=== PATIENT | female | born 1995 | race Caucasian/White ===

== ENCOUNTER 2019-09-23 11:40 | Emergency (ER) | payer SELFPAY ==
[~2019-09-23] VITALS: Ht 149.9 cm; Wt 59.4 kg
[2019-09-23 11:52] VITALS: BP 111/71
--- NOTE | 2019-09-23 11:59 | NUR ---
PT PROVIDED URINE SAMPLE AND AMBULATED TO LOBBY
[2019-09-23 12:37] LABS: APPEARANCE,URINE CLEAR (CLEAR); BILIRUBIN,URINE NEGATIVE (NEGATIVE); BLOOD, URINE 2+ (NEGATIVE); COLOR,URINE YELLOW (YELLOW); LEUKOCYTE ESTERASE ,URINE NEGATIVE (NEGATIVE); NITRITE, URINE NEGATIVE (NEGATIVE); PH,URINE 5.5 (5.0-9.0); UGLUCOSE NEGATIVE (NEGATIVE)
[2019-09-23 12:39] LABS: BASOPHILS % (AUTO) 0.4 % (0.0-2.0); EOSINOPHILS # (AUTO) 0.1 K/uL (0-0.4); EOSINOPHILS % (AUTO) 1.1 % (0.0-4.0); HEMATOCRIT 38.5 % (36-48); HEMOGLOBIN 12.5 g/dL (12.0-16.0); LYMPHOCYTES # (AUTO) 2.2 K/uL (2.5-16.5); LYMPHOCYTES % (AUTO) 35.4 % (20.5-51.1); MEAN CORPUSCULAR HEMOGLOBIN 27 pg (27-31); MEAN CORPUSCULAR HGB CONC 32 g/dL (33-37); MEAN CORPUSCULAR VOLUME 82.5 fL (80-94); MONOCYTES # (AUTO) 0.4 K/uL (0.8-1.0); NEUTROPHILS # (AUTO) 3.6 K/uL (1.8-7.7); NEUTROPHILS % (AUTO) 57.1 % (42.2-75.2); PLATELET COUNT (AUTO) 289 K/uL (140-450); RED BLOOD CELL COUNT(AUTO) 4.66 MIL/uL (4.20-5.40); RED CELL DISTRIBUTION WIDTH 14.3 % (11.6-13.7); WHITE BLOOD COUNT (AUTO) 6.3 K/uL (4.8-10.8)
[2019-09-23 12:51] LABS: RBC,URINE 11-20 (MOD) /HPF (0-5); WBC,URINE 0-5 /HPF (0-5)
--- NOTE | 2019-09-23 13:17 | NUR ---
Patient ambulated to bed 12. RN evaluating patient at bedside.
--- NOTE | 2019-09-23 13:36 | NUR ---
Dr. Carroll evaluating patient at bedside.
--- NOTE | 2019-09-23 13:37 | NUR ---
C/O ABD PAIN 8/10 X3 DAYS, DENIES N/V. PT REPORTS + HOME TEST & VAGINAL BLEEDING X3 DAYS. UNKNOWN , ABORTIONS, AND OR MISCARRIAGES. UNKNOWN LMP. HAS NOT FOLLOWED UP WITH PROFESSOR OF ENVIRONMENTAL ENGINEERING. PATIENT IS [place] SPEAKING ONLY, DR RHODES TRANSLATED. BED IS DOWN, LOCKED, BED RAIL X 1 HX: NONE RX: NONE
[2019-09-23] MEDS ORDERED: LORazepam 1 MG TAB PO ONE (13:45)
--- NOTE | 2019-09-23 14:03 | NUR ---
PT STATES SHE DOES NOT WANT THE ATIVAN FOR ANXIETY.
[2019-09-23 14:34] VITALS: BP 117/74
--- NOTE | 2019-09-23 14:34 | NUR ---
Patient discharged with v/s stable. Written and verbal after care instructions given and explained IN [facility]. Patient verbalized understanding. Ambulatory with steady gait. All questions addressed prior to discharge. PT GIVEN COPY OF LAB AND US RESULTS TO TAKE TO OBGYN FOR FOLLOW UP HCG BLOOD WORK IN 4-5 DAYS
== END 2019-09-23 14:34 | disposition home or self-care (01) ==
LOC: MED 11:40 → EDBD 11:40 → MED 14:34
DX: O20.0 Threatened abortion (principal); Z3A.01 Less than 8 weeks gestation of pregnancy
CPT/HCPCS: 36415; 76817; 81001; 81025; 84702; 85025; 86900; 86901; 99284; Q0092